=== PATIENT | female | born 1990 | race Caucasian/White ===

== ENCOUNTER 2020-05-18 10:58 | Emergency (ER) | payer OTHER ==
[~2020-05-18] VITALS: Ht 170.2 cm; Wt 77.1 kg
[~2020-05-18 10:58] MED LIST: ALDACTONE25 MG PO; HYDROCODONE-AP1 EAC6 PO; KEFLEX500 MG PO; LEVAQUIN 500 M500 M2 PO; OMEPRAZOLE20 MG PO; YAZ 28 TABLET1 EACH PO; ZOFRAN ODT4 M1 PO
[2020-05-18] MEDS ORDERED: BACTRIM DS TAB1 EAC1 PO (11:50)
[2020-05-18] MEDS ORDERED: DOXYCYCLINE 10100 M2 PO ×2 (11:50→11:54)
[2020-05-18] MEDS ORDERED: NORCO 5-325 TA1 EAC2 PO (11:50)
[2020-05-18 12:07] VITALS: BP 133/89
== END 2020-05-18 12:08 | disposition home or self-care (01) ==
LOC: M.ERS 10:58
DX: L03.115 Cellulitis of right lower limb (principal); K21.9 Gastro-esophageal reflux disease without esophagitis; Z77.22 Contact with and (suspected) exposure to environmental tobacco smoke (acute) (chronic)